=== PATIENT | male | born 1940 | race Caucasian/White ===

== ENCOUNTER 2020-11-30 13:27 | Outpatient (REF) | payer MEDICARE, OTHER, SELFPAY ==
--- NOTE | 2020-11-30 13:35 | CT_ITS ---
EXAMINATION: CT HEAD WITHOUT CONTRAST CLINICAL INFORMATION: Hydrocephalus. COMPARISON: No relevant prior imaging. TECHNIQUE: Contiguous axial imaging was performed from the skull base to vertex without intravenous administration of contrast. This CT examination was performed using dose optimization techniques as appropriate, variously including the following: *Automated exposure control *Adjustment of mA and/or kV according to patient size (this includes techniques or standardized protocols for targeted exams where dose is matched to indication/reason for exam; i.e. extremities or head) *Use of iterative reconstruction technique DLP: 697 mGy-cm FINDINGS: There is no acute intracranial hemorrhage or abnormal extra-axial collection. No intracranial mass effect or midline shift. Lateral and third ventricles are normal. No hydrocephalus. There is a small focus of gliosis and encephalomalacia involving left middle frontal gyrus near the vertex best illustrated on axial image 42 of 51 series 2 suggesting an old infarct or trauma. Scattered nonspecific foci of hypoattenuation are also visualized within the periventricular white matter. Brewster-white matter projection is otherwise preserved and there is no evidence of acute territorial infarct. The calvarium and skull base are intact. Mastoid air cells and middle ear cavities are well aerated. No active paranasal sinus disease. 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 Otherwise unremarkable examination. No hydrocephalus. No evidence acute territorial infarct or hemorrhage.
== END 2020-11-30 13:28 | disposition home or self-care (01) ==
LOC: HO.CT 13:27
PROVIDERS: Visit Provider Psychiatry & Neurology Neurology
DX: G91.9 Hydrocephalus, unspecified (principal); I63.9 Cerebral infarction, unspecified
CPT/HCPCS: 70450

== ENCOUNTER 2020-12-19 12:24 | Outpatient (REF) | payer MEDICARE, OTHER, SELFPAY ==
--- NOTE | 2020-12-19 | MR_ITS ---
EXAMINATION: MR CERVICAL SPINE WITHOUT CONTRAST CLINICAL INFORMATION: Shooting pain with head tilting positioning. Rule out myelopathy and cord compression. COMPARISON: None TECHNIQUE: MRI of the cervical spine was obtained using routine sequences without contrast. Limited study with motion artifacts. FINDINGS: VERTEBRAL BODIES AND PARASPINAL SOFT TISSUES: The marrow signal is within normal limits. There is an intraosseous hemangioma in the C6 vertebral body. No compression fractures identified. There is a leftward curvature of the cervical spine. Very mild anterolisthesis noted at the C3-C4 level. The paraspinal soft tissues are unremarkable. The imaged lung apices are grossly clear. CERVICOMEDULLARY JUNCTION AND VISUALIZED POSTERIOR FOSSA: The craniovertebral junction and imaged portions of the brain parenchyma appear normal. There is T2 hyperintense signal abnormality within the cord at the C3-C4 level which is suspected to be due to myelomalacia, however, mild underlying cord edema is difficult to exclude. The cervical vertebral artery flow voids are maintained. SPINAL LEVELS: C2-C3: No significant disc pathology. Severe left-sided facet degeneration. Patent central canal and foramina. C3-C4: Mild anterolisthesis and broad-based disc-osteophyte complex with severe right-sided facet arthropathy. Superimposed central disc protrusion. Findings result in severe central canal stenosis and moderate cord deformity with intramedullary signal change. Significant bilateral foraminal encroachment. C4-C5: Small central disc protrusion and mild annular bulge. No central canal stenosis. Severe right-sided facet arthropathy with mild foraminal encroachment. C5-C6: Broad-based posterior disc bulge with mild central canal stenosis. Moderate to severe foraminal narrowing, worse on the right side. C6-C7: Minimal annular bulge. No central canal stenosis. Moderate left sided facet arthropathy with mild left foraminal narrowing. C7-T1: Minimal annular bulge. No central canal stenosis or foraminal narrowing. MR/MR cervical spine wo con IMPRESSION: Severe central canal stenosis at the C3-C4 level with a mild anterolisthesis, central disc protrusion and underlying broad-based disc-osteophyte complex with significant right-sided facet arthropathy. Cord deformity and intramedullary signal change which is suspected to be due to chronic myelomalacia, however, mild superimposed edema is difficult to exclude. Severe left-sided facet arthropathy at the C2-C3 level. Small central disc protrusion and significant right-sided facet arthropathy at the C4-C5 level. Mild central canal stenosis and moderate to severe foraminal narrowing at the C5-C6 level. Moderate left-sided facet degeneration at the C6-C7 level.
== END 2020-12-19 12:25 | disposition home or self-care (01) ==
LOC: HO.MRI 12:24
PROVIDERS: Visit Provider Psychiatry & Neurology Neurology
DX: G95.9 Disease of spinal cord, unspecified (principal)
CPT/HCPCS: 72141

== ENCOUNTER 2022-05-17 13:46 | Inpatient (IN) | payer OTHER, MEDICARE, SELFPAY ==
--- NOTE | ~2022-05-17 | XR_ITS ---
EXAMINATION: XR CHEST AP upright portable, 4:15 PM CLINICAL INFORMATION: Chest pain COMPARISON: None TECHNIQUE: Frontal view of the chest was obtained. FINDINGS: No significant abnormality is noted involving the heart, lungs, mediastinum, bony thorax or soft tissues. XR/XR chest 1V IMPRESSION: Unremarkable examination.
[2022-05-17 13:50] VITALS: BP 144/78; PULSE 89; O2SAT 98
[2022-05-17 14:03] VITALS: BP 149/66; PULSE 78; RESP 16; TEMP 36; O2SAT 97; BMI 32.1
--- NOTE | 2022-05-17 14:05 | PC.NURSE ---
PT EKG DELAYED DUE TO BOTH MACHINES BEING IN USE
--- NOTE | 2022-05-17 14:10 | ECG_ITS ---
Test Reason : CP Blood Pressure : / mmHG Vent. Rate : 072 BPM Atrial Rate : 072 BPM P-R Int : 166 ms QRS Dur : 080 ms QT Int : 404 ms P-R-T Axes : 056 021 -18 degrees QTc Int : 442 ms Normal sinus rhythm Nonspecific ST and T wave abnormality Abnormal ECG No previous ECGs available Referred By: Generic ED Physician Electronically Signed By:VICENTA THOMAS MD
--- NOTE | 2022-05-17 15:31 | PC.NURSE ---
sts chest pain is now resolved at this time. no resp distress noted.
[2022-05-17 15:48] VITALS: BP 127/68; PULSE 70; RESP 16; TEMP 36.8; O2SAT 98
--- NOTE | 2022-05-17 16:11 | ED_ITS ---
HPI - Chest Pain General Chief Complaint: Chest Pain Stated Complaint: CP Time Seen by Provider: 05/17/22 16:00 Source: patient and EMS Mode of arrival: EMS Limitations: no limitations History of Present Illness HPI narrative: 81-year-old male presents to the emergency department via EMS for evaluation for chest pain. Patient stated that he was at his doctor's appointment, and while he was waiting he was eating crackers while in his car. Said the car was hot, and he ate a whole package of crackers without drinking. Said that he felt pain in his chest where his esophagus is. Pain felt like pressure, and he felt really dry. He said the car was really hot when he was eating. During transport to this facility, EMS gave 4 baby aspirins which he was able to swallow without difficulty. He does not report any prodromal events. Denies dizziness, lightheadedness, weakness, chest pain on inspiration, palpitations, abdominal pain, abdominal distention, changes in vision, fevers or chills. MD complaint: chest discomfort Onset (ago): hour(s) ( Within the hour of arrival) Timing of current episode: now resolved Prior episodes: No Onset: after eating Pain location: other ( esophageal) Pain radiation: none Severity: mild Quality: fullness and other ( pressure) Relieving factors: other ( drinking water) Exacerbating factors: nothing Treatment prior to arrival: aspirin ( 324 mg) Risk Factors Coronary artery disease risk factors: hyperlipidemia and hypertension Thoracic aortic dissection risk factors: none Related Data Allergies Allergy/AdvReac Type Severity Reaction Status Date / Time No Known Allergies Allergy Verified 05/17/22 14:06 Review of Systems Review of Systems: Constitutional: No Fever, No Chills ENT/Mouth: No Ear Pain, No Hoarseness, No sore throat Eyes: No Eye Pain, No Swelling, No Redness, No Foreign Body Cardiovascular: positive Chest Pain, positive esophageal pain, No SOB Respiratory: No Cough, No Dyspnea Gastrointestinal: No Nausea, No Vomiting, No Diarrhea, No abdominal Pain Genitourinary: No Dysuria, No Hematuria Musculoskeletal: positive joint pain, No Myalgias, No Joint Swelling Skin: No Skin lacerations, No rash Neuro: No Weakness, No Numbness, No Paresthesias, No Loss of Consciousness, No Dizziness, No Headache Psych: No Anxiety/Panic, No Depression Heme/Lymph: no easy bruising, no Lymphadenopathy Endocrine: No Polyuria, No Polydipsia Yes all other systems are reviewed and are negative [facility] Past Medical History Attestation statement: The following information was validated with the patient. Source: old records reviewed Social History Social History Advance Directives: No Advance Directives Information Provided: No Physical Exam Vital Signs: Vital Signs: Last Vital Signs Temp 98.2 F 05/17/22 19:59 Pulse 61 05/17/22 19:59 Resp 16 05/17/22 19:59 BP 141/64 H 05/17/22 19:59 Pulse Ox 95 05/17/22 19:59 O2 Del Method 05/17/22 19:59 BMI result Body Mass Index 31.3 Appearance: Alert. Oriented X3. No acute distress. appears nontoxic. Afebrile. Head: Normal external exam. Normocephalic. Atraumatic. Eyes: PERRLA. EOMI. Conjunctiva and sclera normal. Eyelids normal. ENT: TM's Normal. Pharynx normal. Uvula midline. Moist mucous membranes. Neck: Normal inspection. Neck supple. No adenopathy. No meningeal signs. No neck mass noted. CVS: Normal heart rate and rhythm. Heart sound normal. No murmurs noted. Pulses equal to all extremities. Respiratory: No respiratory distress. Painless inspiration. Breath sounds normal. No wheezes/rales/rhonchi noted. Chest nontender. No accessory muscle usage noted or decreased air movement noted. Abdomen: Soft and nontender. Bowel sounds normal in all 4 quadrants. No distention noted. No organomegaly noted. No visible injury noted. Back: No CVA tenderness. Full range of motion noted. Skin: Skin warm and dry. Normal skin color. Normal skin turgor. No chriss hes/lesions/lacerations noted. Extremities: No lower extremity edema. Extremities exhibit normal range of motion. Extremities nontender. Neuro: cranial nerves 2-12 intact, no focal neural deficits, strength 5/5 to all extremities, No motor deficit. No sensory deficit. Reflexes normal. Course Course Course Narrative: 81-year-old male presents with a report of chest pain via EMS. States that he was eating a large amount of crackers and did not have anything to drink with him. He was also sitting in a hot car while he was eating. He points to the sternal notch and his trachea/esophagus When he is asked where the pain. stated that the pain felt like a pressure but alleviated once he had some water to drink. He does not report prior MIs, did not report any prodromal symptoms with this event. He appears well, even unlabored respirations, vital signs are stable and within normal limits, speaking without difficulty and in complete sentences. Physical exam is unremarkable. No reproducible chest pain. No edema noted bilateral lower extremities. Will order ACS workup. 17:09 chest x-ray negative. CBC unremarkable. H&H 13.5/40.4. EKG normal sinus, no indication of ST elevation or depression, no indication of ischemia. 17:39 troponins elevated at 35.2, will repeat. Heart score is 6. 17:51 patient has significant concerns about being in a room with a patient who has been coughing nonstop. Patient wishes respected he was moved to a different room. Will repeat troponins at this time. Patient continues to be asymptomatic. States to have 0 chest pain. 18:59 trope elevated 91.5. high likelyhood of ACS, discussion with Cardiology. Plan of care is to start IV heparin. 19:32 discussion with hospitalist, plan of care is to admit for ACS Please note that patient is going through some difficult times at home. He is getting a divorce, has to move, and has significant anxiety regarding his living situation. At 20:00 patient's son is at bedside, and is reassuring the patient that patient's concerns will be taken care of by the son. I did have Case Management assess this patient. Consultations Consultation #1: catrina Time: 19:09 Consultation #2: Nancy Time: 19:33 MDM - Chest Pain Differential Diagnosis Differential diagnosis: Likely unstable angina pectoris, atypical chest pain, st elevation myocardial infarction, costochondritis and chest pain Medical Records Data Attestation: I reviewed the patient's medical records. Lab Data Attestation: I reviewed the patient's lab results. Result diagrams: 05/17/22 16:48 05/17/22 16:47 Labs: Lab Results 05/17/22 05/17/22 05/17/22 Range/Units 16:47 16:48 16:48 WBC 6.6 (4.8-10.8) X10*3/uL RBC 4.41 L (4.60-5.80) X10*6/uL Hgb 13.5 L (14.0-18.0) g/dl Hct 40.4 L (42.0-52.0) % MCV 91.6 (80.0-98.0) fL MCH 30.6 (27.0-33.0) pg MCHC 33.4 (31.0-36.0) g/dl RDW 12.5 (11.0-16.0) % Plt Count 165 (160-400) X10*3/uL MPV 10.2 (9.4-12.4) fL Immature Gran % (Auto) 0.8 H (0.0-0.4) % Neut % (Auto) 64.0 (45-73) % Lymph % (Auto) 24.8 (20-40) % Hemphill % (Auto) 8.0 (2-11) % Eos % (Auto) 2.1 (0-4) % Baso % (Auto) 0.3 (0-2) % Lymph # (Auto) 1.6 (1.2-4.9) X10*3/uL Hemphill # (Auto) 0.5 (0.1-1.2) X10*3/uL Eos # (Auto) 0.1 (0.0-0.4) X10*3/uL Baso # (Auto) 0.0 (0.0-0.2) X10*3/uL Abs Immat Gran (auto) 0.05 H (0.00-0.03) X10*3/uL Absolute Neuts (auto) 4.2 (2.0-8.3) x10*3/uL Absolute Nucleated RBC 0.000 (0.0-0.012) X10*3/uL Nucleated RBC % (auto) 0.0 (0.0-0.2) /100WBC PT (9.9-13.0) SEC INR (0.9-1.1) APTT (24.1-38.0) SEC Sodium 141 (135-145) mmol/L Potassium 4.0 (3.3-5.1) mmol/L Chloride 108 (96-108) mmol/L Carbon Dioxide 26 (22-29) mmol/L Anion Gap 11 L (12-20) BUN 14 (9-16) mg/dL Creatinine 0.90 (0.5-1.4) mg/dL Estim Creat Clear Calc 71.1 Estimated GFR > 60 POC Glucose (60-115) mg/dL Random Glucose 90 (60-115) mg/dL Calcium 8.7 (8.4-10.2) mg/dL Magnesium 2.4 (1.6-2.6) mg/dL Total Bilirubin 0.7 (0.0-1.0) mg/dL Direct Bilirubin 0.2 (0.0-0.5) mg/dL AST 16 (5-37) U/L ALT 9 (0-40) U/L Alkaline Phosphatase 77 (39-117) U/L Troponin I High Sens 35.2 H (<3.5-35.0) ng/L Total Protein 6.4 L (6.5-8.0) g/dL Albumin 4.1 (3.5-5.0) g/dL Lipase 34 (8-78) U/L COVID-19 (DARVIN) (Negative) COVID-19 Clin Com 05/17/22 05/17/22 05/17/22 Range/Units 16:48 16:53 18:01 WBC (4.8-10.8) X10*3/uL RBC (4.60-5.80) X10*6/uL Hgb (14.0-18.0) g/dl Hct (42.0-52.0) % MCV (80.0-98.0) fL MCH (27.0-33.0) pg MCHC (31.0-36.0) g/dl RDW (11.0-16.0) % Plt Count (160-400) X10*3/uL MPV (9.4-12.4) fL Immature Gran % (Auto) (0.0-0.4) % Neut % (Auto) (45-73) % Lymph % (Auto) (20-40) % Hemphill % (Auto) (2-11) % Eos % (Auto) (0-4) % Baso % (Auto) (0-2) % Lymph # (Auto) (1.2-4.9) X10*3/uL Hemphill # (Auto) (0.1-1.2) X10*3/uL Eos # (Auto) (0.0-0.4) X10*3/uL Baso # (Auto) (0.0-0.2) X10*3/uL Abs Immat Gran (auto) (0.00-0.03) X10*3/uL Absolute Neuts (auto) (2.0-8.3) x10*3/uL Absolute Nucleated RBC (0.0-0.012) X10*3/uL Nucleated RBC % (auto) (0.0-0.2) /100WBC PT 12.5 (9.9-13.0) SEC INR 1.1 (0.9-1.1) APTT 35.1 (24.1-38.0) SEC Sodium (135-145) mmol/L Potassium (3.3-5.1) mmol/L Chloride (96-108) mmol/L Carbon Dioxide (22-29) mmol/L Anion Gap (12-20) BUN (9-16) mg/dL Creatinine (0.5-1.4) mg/dL Estim Creat Clear Calc Estimated GFR POC Glucose 82 (60-115) mg/dL Random Glucose (60-115) mg/dL Calcium (8.4-10.2) mg/dL Magnesium (1.6-2.6) mg/dL Total Bilirubin (0.0-1.0) mg/dL Direct Bilirubin (0.0-0.5) mg/dL AST (5-37) U/L ALT (0-40) U/L Alkaline Phosphatase (39-117) U/L Troponin I High Sens 91.5 H D (<3.5-35.0) ng/L Total Protein (6.5-8.0) g/dL Albumin (3.5-5.0) g/dL Lipase (8-78) U/L COVID-19 (DARVIN) (Negative) COVID-19 Clin Com 05/17/22 Range/Units 19:50 WBC (4.8-10.8) X10*3/uL RBC (4.60-5.80) X10*6/uL Hgb (14.0-18.0) g/dl Hct (42.0-52.0) % MCV (80.0-98.0) fL MCH (27.0-33.0) pg MCHC (31.0-36.0) g/dl RDW (11.0-16.0) % Plt Count (160-400) X10*3/uL MPV (9.4-12.4) fL Immature Gran % (Auto) (0.0-0.4) % Neut % (Auto) (45-73) % Lymph % (Auto) (20-40) % Hemphill % (Auto) (2-11) % Eos % (Auto) (0-4) % Baso % (Auto) (0-2) % Lymph # (Auto) (1.2-4.9) X10*3/uL Hemphill # (Auto) (0.1-1.2) X10*3/uL Eos # (Auto) (0.0-0.4) X10*3/uL Baso # (Auto) (0.0-0.2) X10*3/uL Abs Immat Gran (auto) (0.00-0.03) X10*3/uL Absolute Neuts (auto) (2.0-8.3) x10*3/uL Absolute Nucleated RBC (0.0-0.012) X10*3/uL Nucleated RBC % (auto) (0.0-0.2) /100WBC PT (9.9-13.0) SEC INR (0.9-1.1) APTT (24.1-38.0) SEC Sodium (135-145) mmol/L Potassium (3.3-5.1) mmol/L Chloride (96-108) mmol/L Carbon Dioxide (22-29) mmol/L Anion Gap (12-20) BUN (9-16) mg/dL Creatinine (0.5-1.4) mg/dL Estim Creat Clear Calc Estimated GFR POC Glucose (60-115) mg/dL Random Glucose (60-115) mg/dL Calcium (8.4-10.2) mg/dL Magnesium (1.6-2.6) mg/dL Total Bilirubin (0.0-1.0) mg/dL Direct Bilirubin (0.0-0.5) mg/dL AST (5-37) U/L ALT (0-40) U/L Alkaline Phosphatase (39-117) U/L Troponin I High Sens (<3.5-35.0) ng/L Total Protein (6.5-8.0) g/dL Albumin (3.5-5.0) g/dL Lipase (8-78) U/L COVID-19 (DARVIN) Negative (Negative) COVID-19 Clin Com See Note Imaging Data Chest x-ray: Attestation: I personally reviewed and interpreted this imaging study as follows: Radiologist's impression: EXAMINATION: XR CHEST AP upright portable, 4:15 PM CLINICAL INFORMATION: Chest pain COMPARISON: None TECHNIQUE: Frontal view of the chest was obtained. FINDINGS: No significant abnormality is noted involving the heart, lungs, mediastinum, bony thorax or soft tissues. XR/XR chest 1V IMPRESSION: Unremarkable examination. ECG Data ECG #1: Attestation: I personally reviewed and interpreted this ECG as follows: ECG interpretation date: 05/17/22 ECG interpretation time: 13:56 Interpretation: Vent. rate 72 BPM RI interval 166 ms QRS duration 80 ms QT/QTc 404/442 ms P-R-T axes 56 21 -18 Normal sinus rhythm Nonspecific ST and T wave abnormality Abnormal ECG No previous ECGs available Scores Heart Score History: -1- moderately suspicious ECG: -1- non specific repolarization disturbance Age: -2- > or = 65 Risk factory: -2- 3 or more risk factors or treated atherosclerosis Troponin: -0- < or = normal limit Score: 6 Risk: 16.6% Critical Care Time Critical Care Time Critical Care Time: Yes Total Critical Care Time: 45 Attestation: I have personally provided critical care time exclusive of time spent on separately billable procedures. Time includes review of laboratory data, radiology results, discussion with consultants, and monitoring for potential decompensation. Interventions were performed as documented. Discharge Plan Discharge Clinical Impression: Acute non-ST elevation myocardial infarction (NSTEMI) Patient Disposition: Admitted As Inpatient
[2022-05-17 16:52] LABS: MANUAL DIFF FLAG NO
[2022-05-17 16:58] LABS: Glucose, Whole Blood 82 mg/dL (60-115)
[2022-05-17 17:01] LABS: Basophils Percent Auto 0.3 % (0-2); Eosinophils Absolute Auto 0.1 X10*3/uL (0.0-0.4); Eosinophils Percent Auto 2.1 % (0-4); Hematocrit 40.4 % (42.0-52.0); Hemoglobin 13.5 g/dl (14.0-18.0); Imm Gran Abs Auto 0.05 X10*3/uL (0.00-0.03); Imm Gran Pct Auto 0.8 % (0.0-0.4); Lymphocytes Absolute Auto 1.6 X10*3/uL (1.2-4.9); Lymphocytes Percent Auto 24.8 % (20-40); Mean Corpuscular HGB Conc 33.4 g/dl (31.0-36.0); Mean Corpuscular Hemoglobin 30.6 pg (27.0-33.0); Mean Corpuscular Volume 91.6 fL (80.0-98.0); Mean Platelet Volume 10.2 fL (9.4-12.4); Monocytes Absolute Auto 0.5 X10*3/uL (0.1-1.2); Neutrophils Absolute Auto 4.2 x10*3/uL (2.0-8.3); Platelet Count 165 X10*3/uL (160-400); Red Blood Count 4.41 X10*6/uL (4.60-5.80); Red Cell Distribution Width 12.5 % (11.0-16.0); White Blood Count 6.6 X10*3/uL (4.8-10.8)
[2022-05-17 17:05] LABS: Partial Thromboplastin Time 35.1 SEC (24.1-38.0)
[2022-05-17 17:26] LABS: Alanine Aminotransferase 9 U/L (0-40); Albumin Level 4.1 g/dL (3.5-5.0); Alkaline Phosphatase 77 U/L (39-117); Anion Gap 11 (12-20); Aspartate Amino Transferase 16 U/L (5-37); Bilirubin Direct 0.2 mg/dL (0.0-0.5); Bilirubin Total 0.7 mg/dL (0.0-1.0); Blood Urea Nitrogen 14 mg/dL (9-16); Calcium 8.7 mg/dL (8.4-10.2); Carbon Dioxide 26 mmol/L (22-29); Chloride 108 mmol/L (96-108); Creatinine Clr Calc Pharmacy 71.1; Estimated Glomerular Filt Rate > 60; Glucose Random 90 mg/dL (60-115); Lipase 34 U/L (8-78); Magnesium 2.4 mg/dL (1.6-2.6); Sodium 141 mmol/L (135-145); Total Protein 6.4 g/dL (6.5-8.0)
[2022-05-17 17:28] LABS: Troponin-I High Sensitivity 35.2 ng/L (<3.5-35.0)
[2022-05-17 18:00] VITALS: BP 143/61; PULSE 64; RESP 16; TEMP 36.6; O2SAT 98
--- NOTE | 2022-05-17 18:18 | PC.NURSE ---
PATIENT STATED HE WAS HUNGRY ,I GAVE PATIENT A HAM SANDWICH ,CHEESE STICKS ,PUDDING AND A TERRY BENJAMIN
[2022-05-17 18:32] LABS: Troponin-I High Sensitivity 91.5 ng/L (<3.5-35.0)
[2022-05-17 19:17] VITALS: BMI 31.3
[2022-05-17 19:17] LABS: INTERNATIONAL NORM RATIO 1.1 (0.9-1.1); Prothrombin Time 12.5 SEC (9.9-13.0)
--- NOTE | 2022-05-17 19:37 | PC.NURSE ---
pT HAD FULL LAB SET DRAWN AT 1648, OKAY PER CLUB ROOM ATTENDANT TO NOT PROTOCOL LAB SET.
[2022-05-17] MEDS: Heparin Sodium,Porcine 5,000 UNIT/ML VIAL 4000 UNIT IVPUSH (19:38)
[2022-05-17] MEDS: Heparin Sodium,Porcine/1/2NS 25,000 UNIT/250 ML IV.SOLN 10 UNIT IVCONT (19:39)
[2022-05-17 19:59] VITALS: BP 141/64; PULSE 61; RESP 16; TEMP 36.8; O2SAT 95
[2022-05-17 20:13] LABS: COVID-19 Test Negative (Negative)
--- NOTE | 2022-05-17 20:30 | PHA.MEDREC ---
Pharmacy Consult ? Medication Reconciliation Pharmacy has completed the medication reconciliation. Med list obtained from [place]
--- NOTE | 2022-05-17 20:57 | PC.NURSE ---
patient son at bedside ,patient request another sandwich and a nishant lenore .
[2022-05-17 21:31] VITALS: BP 135/79; PULSE 73; RESP 16; TEMP 36.8; O2SAT 97
--- NOTE | 2022-05-17 21:59 | P.HPHOSP_ITS ---
History of Present Illness Date of Service: 05/17/22 Chief Complaint: chest pain This is an 81-year-old male with past medical history of hyperlipidemia, hypothyroidism, BPH, as well as mild dementia presents the hospital with his son after experiencing chest pain. Patient reports that he was at the parking lot a t his doctor's office when he experienced substernal chest pain radiating to the neck, the pain was severe, heavy, constant, lasted for 2 hours, resolved on his arrival to the ED and receiving aspirin, reports no previous similar episode. No exacerbating factors. Patient reports no abdominal pain nausea or vomiting, no palpitations, no headache, no change in vision, no diarrhea constipation, no urinary symptoms and no lower extremity edema. On his arrival to the ED patient vitals were stable with no significant abnormality Labs are significant for WBC count of 7.0, hemoglobin of 13.7, troponin initially 35, increased to 91.5, otherwise unremarkable, EKG showed normal sinus rhythm, nonspecific ST T wave changes This case was discussed with Cardiology, patient started heparin drip, and patient will be admitted for further management Review of Systems Review of Systems: Yes all other systems are reviewed and are negative [facility] Medical History BPH (benign prostatic hyperplasia) GERD (gastroesophageal reflux disease) HLD (hyperlipidemia) Hypothyroidism Mild dementia Family History (Updated 05/18/22 @ 06:12 by Estelita Cruz MD) Other No family history of coronary artery disease Surgical History History of thoracic surgery Social History Advance Directives: No Advance Directives Information Provided: No service: Yes Current occupational status: retired Meds Allergies Allergy/AdvReac Type Severity Reaction Status Date / Time No Known Allergies Allergy Verified 05/17/22 14:06 Active Medications: Current Medications Acetaminophen (Acetaminophen 325 Mg Tablet) 650 mg PO Q6H PRN PRN Reason: Pain, Mild (Pain Scale 1-3) Aspirin (Aspirin Enteric Coated 81 Mg Tablet.Dr) 81 mg PO DAILY [facility] Atorvastatin Calcium (Atorvastatin Calcium 40 Mg Tablet) 40 mg PO BEDTIME [facility] Docusate Sodium (Docusate Sodium 100 Mg Capsule) 100 mg PO DAILY PRN PRN Reason: Constipation Donepezil HCl (Donepezil Hcl 5 Mg Tablet) 5 mg PO DAILY [facility] Heparin Sodium (Porcine) (Heparin Sodium,Porcine 5,000 Unit/Ml Vial) 3,600 unit 40 unit/kg (3600 unit) IVPUSH PROTOCOL BOLUS PRN; Protocol PRN Reason: 40 unit/kg - Heparin Protocol Heparin Sodium (Porcine) (Heparin Sodium,Porcine 5,000 Unit/Ml Vial) 7,300 unit 80 unit/kg (7300 unit) IVPUSH PROTOCOL BOLUS PRN; Protocol PRN Reason: 80 unit/kg - Heparin Protocol Heparin Sodium/Sodium Chloride () 25,000 unit in 250 mls @ 0 mls/hr IVCONT .Q0M [facility]; Protocol Last Admin: 05/17/22 19:39 Dose: 11.03 units/kg/hr, 10 mls/hr Levothyroxine Sodium (Levothyroxine Sodium 125 Mcg Tablet) 125 mcg PO DAILY@0600 [facility] Omeprazole (Omeprazole 20 Mg Capsule.Dr) 20 mg PO DAILY [facility] Ondansetron HCl (Ondansetron Hcl 4 Mg/2 Ml Vial) 4 mg IVPUSH Q8H PRN PRN Reason: Nausea and Vomiting Sertraline HCl (Sertraline Hcl 50 Mg Tablet) 50 mg PO DAILY [facility] Sodium Chloride (0.9 % Sodium Chloride Flush 3 Ml Syringe) 3 ml IVFLUSH QSHIFT [facility] Tamsulosin HCl (Tamsulosin Hcl 0.4 Mg Capsule) 0.4 mg PO DAILY [facility] Home Medications Medication Instructions Recorded Confirmed Last Taken Type aspirin 81 mg tablet,delayed 81 mg PO DAILY 05/17/22 05/17/22 05/16/22 History release atorvastatin 80 mg tablet 40 mg PO BEDTIME 05/17/22 05/17/22 05/16/22 History donepezil 5 mg tablet 5 mg PO DAILY 05/17/22 05/17/22 05/16/22 History levothyroxine 125 mcg tablet 125 mcg PO DAILY 05/17/22 05/17/22 05/16/22 History pantoprazole 20 mg tablet,delayed 20 mg PO DAILY 05/17/22 05/17/22 05/16/22 History release (Protonix) sertraline 50 mg tablet (Zoloft) 50 mg PO DAILY 05/17/22 05/17/22 05/16/22 History tamsulosin 0.4 mg capsule 0.4 mg PO DAILY 05/17/22 05/17/22 05/16/22 History Physical Exam Vital Signs and Narrative: Vital Signs: Last Vital Signs Temp 98.2 F 05/17/22 19:59 Pulse 61 05/17/22 19:59 Resp 16 05/17/22 19:59 BP 141/64 H 05/17/22 19:59 Pulse Ox 95 05/17/22 19:59 O2 Del Method 05/17/22 19:59 BMI result Body Mass Index 31.3 Const: General: cooperative and no acute distress Orientation/consciousness: patient oriented x3 Eyes: General: appearance normal, both eyes and all related structures Resp: Effort & Inspection: normal respiratory effort Auscultation: clear to auscultation bilaterally Cardio: Rate: regular rate Rhythm: regular rhythm GI: Palpation (GI): Soft to palpation Auscultation: normal bowel sounds Skin: General skin exam: no rashes or lesions noted Neuro: General: patient oriented x3 Cognition (Neuro): normal cognition Extrem: General: Yes normal to inspection and Yes no pedal edema Results Labs CBC and Chem 7: 05/17/22 23:55 05/17/22 16:47 Labs: Laboratory Results - last 24 hr 05/17/22 05/17/22 05/17/22 16:47 16:48 16:48 MCV 91.6 MCH 30.6 MCHC 33.4 RDW 12.5 Plt Count 165 MPV 10.2 Immature Gran % (Auto) 0.8 H Neut % (Auto) 64.0 Lymph % (Auto) 24.8 [place] % (Auto) 8.0 Eos % (Auto) 2.1 Baso % (Auto) 0.3 Lymph # (Auto) 1.6 [place] # (Auto) 0.5 Eos # (Auto) 0.1 Baso # (Auto) 0.0 Abs Immat Gran (auto) 0.05 H Absolute Neuts (auto) 4.2 Absolute Nucleated RBC 0.000 Nucleated RBC % (auto) 0.0 PT INR APTT Anion Gap 11 L Estim Creat Clear Calc 71.1 Estimated GFR > 60 POC Glucose Random Glucose 90 Calcium 8.7 Magnesium 2.4 Total Bilirubin 0.7 Direct Bilirubin 0.2 AST 16 ALT 9 Alkaline Phosphatase 77 Troponin I High Sens 35.2 H Total Protein 6.4 L Albumin 4.1 Lipase 34 COVID-19 (DARVIN) COVID-19 Clin Com 05/17/22 05/17/22 05/17/22 16:48 16:53 18:01 MCV MCH MCHC RDW Plt Count MPV Immature Gran % (Auto) Neut % (Auto) Lymph % (Auto) [place] % (Auto) Eos % (Auto) Baso % (Auto) Lymph # (Auto) [place] # (Auto) Eos # (Auto) Baso # (Auto) Abs Immat Gran (auto) Absolute Neuts (auto) Absolute Nucleated RBC Nucleated RBC % (auto) PT 12.5 INR 1.1 APTT 35.1 Anion Gap Estim Creat Clear Calc Estimated GFR POC Glucose 82 Random Glucose Calcium Magnesium Total Bilirubin Direct Bilirubin AST ALT Alkaline Phosphatase Troponin I High Sens 91.5 H D Total Protein Albumin Lipase COVID-19 (DARVIN) COVID-19 Clin Com 05/17/22 19:50 MCV MCH MCHC RDW Plt Count MPV Immature Gran % (Auto) Neut % (Auto) Lymph % (Auto) [place] % (Auto) Eos % (Auto) Baso % (Auto) Lymph # (Auto) [place] # (Auto) Eos # (Auto) Baso # (Auto) Abs Immat Gran (auto) Absolute Neuts (auto) Absolute Nucleated RBC Nucleated RBC % (auto) PT INR APTT Anion Gap Estim Creat Clear Calc Estimated GFR POC Glucose Random Glucose Calcium Magnesium Total Bilirubin Direct Bilirubin AST ALT Alkaline Phosphatase Troponin I High Sens Total Protein Albumin Lipase COVID-19 (DARVIN) Negative COVID-19 Clin Com See Note Imaging Radiologist's Impressions: Impressions Chest X-Ray 05/17/22 16:24 IMPRESSION: Unremarkable examination. Assessment and Plan (1) Acute non-ST elevation myocardial infarction (NSTEMI): Status: Acute Plan 81-year-old male with past medical history of hypothyroidism, hyperlipidemia, presents the hospital with complaints of chest pain found to have NSTEMI # NSTEMI - elevated high sensitivity troponin with delta - nonspecific ST T wave changes on EKG - patient on heparin drip - resume home aspirin as well as atorvastatin - will start on metoprolol small dose - echocardiogram - cardiology consulted # hypothyroidism - continue levothyroxine # BPH - continue tamsulosin # GERD - continue pantoprazole DVT prophylaxis: Heparin GGT Given the patient finding of NSTEMI, and need for further evaluation by Cardiology, patient will require a minimum 2 night hospital stay for further management Quality Stroke Does the patient have a stroke diagnosis?: No VTE Prior VTE?: No VTE Risk Level:: Medical - moderate - high VTE Device Contraindication: Treatment Not Indicated VTE Drug Contraindication: N/A - Med Ordered
--- NOTE | 2022-05-17 22:08 | MHC.CM.PN ---
IMM 05/17. HCP/son Kris Goins ([phone]). Lives alone. Son provides assistance. Lives 5 minutes away. Pt still drives. No services. Family help. Uses cane/walker. Vax x2 01/30/21, 02/20/21 with Pfizer and Moderna 12/15/21. [place]. Not vet connected. Has services at both [facility] and [facility]. [facility] [place] [facility] on [address] Ovi Bey in [facility] if his doctor. [facility] CM needs to call MD for PCP. D/C plan: Home with [facility]. Son will provide transport.
--- NOTE | 2022-05-17 22:29 | PC.NURSE ---
PATIENT SON IS STILL AT BEDSIDE ,PATIENT IN [facility] ,JOKING AROUND WITH STAFF .
--- NOTE | 2022-05-18 | ECG_ITS ---
Test Reason : ADMISSION RECHECK Blood Pressure : / mmHG Vent. Rate : 056 BPM Atrial Rate : 056 BPM P-R Int : 168 ms QRS Dur : 078 ms QT Int : 438 ms P-R-T Axes : 060 019 100 degrees QTc Int : 422 ms Sinus bradycardia Abnormal QRS-T angle, consider primary T wave abnormality Abnormal ECG When compared with ECG of 17-MAY-2022 13:56, T wave inversion no longer evident in Inferior leads Nonspecific T wave abnormality, worse in Lateral leads Referred By: Franky Bhatt Electronically Signed By:VICENTA THOMAS MD
[2022-05-18 00:07] LABS: Hematocrit 41.1 % (42.0-52.0); Hemoglobin 13.7 g/dl (14.0-18.0); Mean Corpuscular HGB Conc 33.3 g/dl (31.0-36.0); Mean Corpuscular Hemoglobin 30.5 pg (27.0-33.0); Mean Corpuscular Volume 91.5 fL (80.0-98.0); Mean Platelet Volume 10.3 fL (9.4-12.4); Platelet Count 175 X10*3/uL (160-400); Red Blood Count 4.49 X10*6/uL (4.60-5.80); Red Cell Distribution Width 12.3 % (11.0-16.0)
[2022-05-18 00:20] LABS: INTERNATIONAL NORM RATIO 1.1 (0.9-1.1); Prothrombin Time 12.1 SEC (9.9-13.0)
[2022-05-18 02:06] LABS: PTT Heparin Drip 34.5 SEC (53-77.9)
[2022-05-18] MEDS: Heparin Sodium,Porcine 5,000 UNIT/ML VIAL 7300 UNIT IVPUSH (02:29)
[2022-05-18] MEDS: 0.9 % Sodium Chloride Flush 3 ML SYRINGE IVFLUSH ×4 (02:35→19:31)
[2022-05-18 04:38] VITALS: BP 134/67; PULSE 70; RESP 20; O2SAT 96
[2022-05-18 06:59] VITALS: BP 139/72; PULSE 62; RESP 16; O2SAT 95
--- NOTE | 2022-05-18 07:00 | CA_ITS ---
Transthoracic Echocardiogram Patient (Last, First, Middle): Huang Goins, Gender: Male Date of : 1940 Age: 81 Procedure Date: 05/18/2022 Procedure Type: Transthoracic Echocardiogram Location: ER Height: 170.18 cm Weight: 48.08 kg BSA: 1.54 m2 Heart Rate: bpm BP: 117 / 56 mmHg Leather Belt Maker: IVAN Meeks MD: Estelita Cruz MD Wire Rope Sales Representative: Santiago Diaz MD Symptoms: NSTEMI Study Quality: Fair/Contrast ECG Rhythm: Sinus Conclusions: - 1. Normal LV systolic function with impaired relaxation filling pattern with regional wall motion abnormality in LAD territory 2. Trivial aortic regurgitation 3. Normal RV systolic pressure 4. No gross pericardial effusion Findings Procedure Information Contrast agent, definity, is being given per protocol without apparent complications. Left Ventricle Normal left ventricular size, thickness, and systolic function. The visually estimated ejection fraction is between 55-60%. Spectral Doppler is indicative of an impaired relaxation filling pattern. E/E prime ratio is between 8 and 15 consistent with indeterminate filling pressures. Wall Motion Rest Echo Findings The apex, apical anterior, mid anterior, apical lateral, and apical septum segments are hypokinetic. All other scored wall segments showed normal motion. Right Ventricle Normal right ventricular cavity size and systolic function. Atria The left atrium is normal in size. Interatrial shunt cannot be excluded. The right atrium is normal in size. Aortic Valve Normal aortic valve structure and function. There is no aortic valve stenosis. There is trace (trivial) aortic valve regurgitation. Mitral Valve There is mild anterior and posterior mitral leaflet thickening. There is mild mitral annular calcification. There is trace mitral valve regurgitation. There is no mitral valve stenosis. Pulmonic Valve The pulmonic valve is likely normal. There is trace to mild pulmonic valve regurgitation. Tricuspid Valve Normal tricuspid valve structure. There is trace tricuspid valve regurgitation. The right ventricular systolic pressure is normal. The right ventricular systolic pressure is 19 mmHg. Normal right atrial pressure. Great Vessels All visible segments of the aorta are normal in size. The pulmonary artery was not well visualized. Small plaque is seen in the sino tubular ridge. Venous The inferior vena cava is normal in size and collapses greater than 50% with inspiration. Pericardium/Pleural There is no evidence of pericardial effusion. Prior Study Comparison No prior study available for comparison. Measurements 2D Linear Measurements IVSd: 1.06 0.6-0.9/0.6-1.0 cm LVIDd: 3.95 3.9-5.3/4.2-5.9 cm LVIDd Index: 2.56 2.4-3.2/2.2-3.1 cm/m2 LVIDs: 3.18 2.0-3.6 cm LVPWd: 0.93 0.7-1.1 cm LA Diam: 3.30 2.7-3.8/3.0-4.0 cm LAIDs Index: 2.14 1.5-2.3 cm/m2 LV Mass: 153.98 67-162/88-224 g LV Mass Index: 99.99 43-95/49-115 g/m2 LVOT Diam: 2.00 3.0+(-)1.3 cm 2D Systolic Function EF 4C: 57.40 >55% EF 2C: 54.00 >55% EF BiP: 56.50 >55% Mitral Valve MV Pk E: 1.04 MV PK A: 0.94 MV Decel Time: 268.00 E/A: 1.10 E'Lateral: 7.62 E'Medial: 7.07 E/E' Med: 14.70 E/E' Lat: 13.60 PHT: 79.00 MVA PHT: 2.78 Decel [place]: 3.89 Aortic Valve AoV Pk Eliazar: 1.08 AoV Mn Eliazar: 0.73 AoV VTI: 0.21 AoV Pk Grad: 5.00 Aov Mn Grad: 3.00 ANNALEE Cont.VTI: 3.38 LVOT LVOT Pk Eliazar: 1.03 LVOT Mn Eliazar: 0.66 LVOT VTI: 0.23 LVOT Pk Grad: 4.00 LVOT Mn Grad: 2.00 LVOT Diam: 2.00 LVOT Area: 3.14 Diastolic Function MV Pk E: 1.04 MV Pk A: 0.94 E/A: 1.10 E'Medial: 7.07 E/E' Med: 14.70 E' Laterial: 7.62 E/E' Lat: 13.60 Right Ventricle TAPSE (mm): 15.90 TVS' Eliazar: 9.46 Tricuspid Valve TR Pk Eliazar: 2.02 TR Pk Grad: 16.00 RA Press: 3.00 RVSP: 19.00 Great Vessels Aorta Sinus of Valsalva: 3.92 2.0-3.5 cm Ao Asc: 3.10 2.1-3.4 cm Ao Arch: 2.70 Updated in Other Vendor System with Status of Final Santiago Diaz MD electronically signed on 05/19/2022 11:35:22 AM with status of Final
[2022-05-18 07:01] LABS: MANUAL DIFF FLAG NO
[2022-05-18 07:04] LABS: Glucose, Whole Blood 83 mg/dL (60-115)
[2022-05-18 07:07] LABS: INTERNATIONAL NORM RATIO 1.2 (0.9-1.1); Prothrombin Time 13.3 SEC (9.9-13.0)
[2022-05-18 07:09] LABS: Basophils Percent Auto 0.3 % (0-2); Eosinophils Absolute Auto 0.3 X10*3/uL (0.0-0.4); Eosinophils Percent Auto 4.4 % (0-4); Hematocrit 40.7 % (42.0-52.0); Hemoglobin 13.6 g/dl (14.0-18.0); Imm Gran Abs Auto 0.03 X10*3/uL (0.00-0.03); Imm Gran Pct Auto 0.4 % (0.0-0.4); Lymphocytes Absolute Auto 2.2 X10*3/uL (1.2-4.9); Lymphocytes Percent Auto 27.8 % (20-40); Mean Corpuscular HGB Conc 33.4 g/dl (31.0-36.0); Mean Corpuscular Hemoglobin 30.5 pg (27.0-33.0); Mean Corpuscular Volume 91.3 fL (80.0-98.0); Mean Platelet Volume 10.5 fL (9.4-12.4); Monocytes Absolute Auto 0.6 X10*3/uL (0.1-1.2); Monocytes Percent Auto 7.7 % (2-11); Neutrophils Absolute Auto 4.6 x10*3/uL (2.0-8.3); Neutrophils Percent Auto 59.4 % (45-73); Platelet Count 152 X10*3/uL (160-400); Red Blood Count 4.46 X10*6/uL (4.60-5.80); Red Cell Distribution Width 12.1 % (11.0-16.0); White Blood Count 7.8 X10*3/uL (4.8-10.8)
[2022-05-18] MEDS: Donepezil HCl 5 MG TABLET PO (07:15)
[2022-05-18] MEDS: Tamsulosin HCL 0.4 MG CAPSULE PO (07:15)
[2022-05-18] MEDS: Metoprolol Tartrate 12.5 MG HALFTAB PO ×2 (07:15→19:31)
[2022-05-18] MEDS: Sertraline HCL 50 MG TABLET PO (07:16)
[2022-05-18] MEDS: Aspirin Enteric Coated 81 MG TABLET.DR PO (07:16)
[2022-05-18] MEDS: Omeprazole 20 MG CAPSULE.DR PO (07:16)
[2022-05-18] MEDS: Levothyroxine Sodium 125 MCG TABLET PO (07:16)
[2022-05-18 07:35] LABS: Anion Gap 9 (12-20); Blood Urea Nitrogen 12 mg/dL (9-16); Calcium 8.7 mg/dL (8.4-10.2); Carbon Dioxide 28 mmol/L (22-29); Chloride 108 mmol/L (96-108); Creatinine Clr Calc Pharmacy 76.2; Estimated Glomerular Filt Rate > 60; Glucose Random 96 mg/dL (60-115); Potassium 3.7 mmol/L (3.3-5.1); Sodium 141 mmol/L (135-145)
--- NOTE | 2022-05-18 09:39 | P.PNIM_ITS ---
Subjective Subjective Date of Service: 05/18/22 Interval History: f/u on NSTEMI Interval history:no chest pain Review of Systems no cp or sob Physical Exam Vital Signs: Vital Signs: Last Vital Signs Temp 98.3 F 05/17/22 21:31 Pulse 62 05/18/22 06:59 Resp 16 05/18/22 06:59 BP 139/72 05/18/22 06:59 Pulse Ox 95 05/18/22 06:59 O2 Del Method 05/18/22 06:59 BMI result Body Mass Index 31.3 Const: Other: General: AO X 3, no acute distress Resp: CTA bilateral CVS: S1,S2,RRR GI: +BS, NT, no distention Skin: No rash Neuro: motor grossly intact Psych: appropriate affect Objective Data Active Medications Acetaminophen (Acetaminophen 325 Mg Tablet) 650 mg PO Q6H PRN PRN Reason: Pain, Mild (Pain Scale 1-3) Aspirin (Aspirin Enteric Coated 81 Mg Tablet.) 81 mg PO DAILY [facility] Last Admin: 05/18/22 07:16 Dose: 81 mg Documented By: TEJAS Atorvastatin Calcium (Atorvastatin Calcium 40 Mg Tablet) 40 mg PO BEDTIME [facility] Docusate Sodium (Docusate Sodium 100 Mg Capsule) 100 mg PO DAILY PRN PRN Reason: Constipation Donepezil HCl (Donepezil Hcl 5 Mg Tablet) 5 mg PO DAILY [facility] Last Admin: 05/18/22 07:15 Dose: 5 mg Documented By: TEJAS Heparin Sodium (Porcine) (Heparin Sodium,Porcine 5,000 Unit/Ml Vial) 3,600 unit 40 unit/kg (3600 unit) IVPUSH PROTOCOL BOLUS PRN; Protocol PRN Reason: 40 unit/kg - Heparin Protocol Heparin Sodium (Porcine) (Heparin Sodium,Porcine 5,000 Unit/Ml Vial) 7,300 unit 80 unit/kg (7300 unit) IVPUSH PROTOCOL BOLUS PRN; Protocol PRN Reason: 80 unit/kg - Heparin Protocol Last Admin: 05/18/22 02:29 Dose: 7,300 unit Documented By: KIM Heparin Sodium/Sodium Chloride () 25,000 unit in 250 mls @ 0 mls/hr IVCONT .Q0M [facility]; Protocol Last Titration: 05/18/22 02:31 Dose: 15.03 units/kg/hr, 13.63 mls/hr Documented By: KIM Co-signed By: PEDRO Levothyroxine Sodium (Levothyroxine Sodium 125 Mcg Tablet) 125 mcg PO DAILY@0600 [facility] Last Admin: 05/18/22 07:16 Dose: 125 mcg Documented By: TEJAS Metoprolol Tartrate (Metoprolol Tartrate 12.5 Mg Halftab) 12.5 mg PO BID [facility]; Protocol Last Admin: 05/18/22 07:15 Dose: 12.5 mg Documented By: TEJAS Omeprazole (Omeprazole 20 Mg Capsule.) 20 mg PO DAILY [facility] Last Admin: 05/18/22 07:16 Dose: 20 mg Documented By: TEJAS Ondansetron HCl (Ondansetron Hcl 4 Mg/2 Ml Vial) 4 mg IVPUSH Q8H PRN PRN Reason: Nausea and Vomiting Sertraline HCl (Sertraline Hcl 50 Mg Tablet) 50 mg PO DAILY [facility] Last Admin: 05/18/22 07:16 Dose: 50 mg Documented By: TEJAS Sodium Chloride (0.9 % Sodium Chloride Flush 3 Ml Syringe) 3 ml IVFLUSH QSHIFT [facility] Last Admin: 05/18/22 02:35 Dose: 3 ml Documented By: KIM Tamsulosin HCl (Tamsulosin Hcl 0.4 Mg Capsule) 0.4 mg PO DAILY [facility] Last Admin: 05/18/22 07:15 Dose: 0.4 mg Documented By: TEJAS Labs CBC & Chem 7: 05/18/22 06:18 05/18/22 06:18 Labs: Laboratory Results - last 24 hr 05/17/22 05/17/22 05/17/22 16:47 16:48 16:48 MCV 91.6 MCH 30.6 MCHC 33.4 RDW 12.5 Plt Count 165 MPV 10.2 Immature Gran % (Auto) 0.8 H Neut % (Auto) 64.0 Lymph % (Auto) 24.8 [place] % (Auto) 8.0 Eos % (Auto) 2.1 Baso % (Auto) 0.3 Lymph # (Auto) 1.6 [place] # (Auto) 0.5 Eos # (Auto) 0.1 Baso # (Auto) 0.0 Abs Immat Gran (auto) 0.05 H Absolute Neuts (auto) 4.2 Absolute Nucleated RBC 0.000 Nucleated RBC % (auto) 0.0 PT INR APTT aPTT Heparin Protocol Anion Gap 11 L Estim Creat Clear Calc 71.1 Estimated GFR > 60 POC Glucose Random Glucose 90 Calcium 8.7 Magnesium 2.4 Total Bilirubin 0.7 Direct Bilirubin 0.2 AST 16 ALT 9 Alkaline Phosphatase 77 Troponin I High Sens 35.2 H Total Protein 6.4 L Albumin 4.1 Lipase 34 COVID-19 (DARVIN) COVID-19 [place] Com 05/17/22 05/17/22 05/17/22 16:48 16:53 18:01 MCV MCH MCHC RDW Plt Count MPV Immature Gran % (Auto) Neut % (Auto) Lymph % (Auto) [place] % (Auto) Eos % (Auto) Baso % (Auto) Lymph # (Auto) [place] # (Auto) Eos # (Auto) Baso # (Auto) Abs Immat Gran (auto) Absolute Neuts (auto) Absolute Nucleated RBC Nucleated RBC % (auto) PT 12.5 INR 1.1 APTT 35.1 aPTT Heparin Protocol Anion Gap Estim Creat Clear Calc Estimated GFR POC Glucose 82 Random Glucose Calcium Magnesium Total Bilirubin Direct Bilirubin AST ALT Alkaline Phosphatase Troponin I High Sens 91.5 H D Total Protein Albumin Lipase COVID-19 (DARVIN) COVID-WP Fail-Safe 05/17/22 05/17/22 05/17/22 19:50 23:55 23:55 MCV 91.5 MCH 30.5 MCHC 33.3 RDW 12.3 Plt Count 175 MPV 10.3 Immature Gran % (Auto) Neut % (Auto) Lymph % (Auto) [place] % (Auto) Eos % (Auto) Baso % (Auto) Lymph # (Auto) [place] # (Auto) Eos # (Auto) Baso # (Auto) Abs Immat Gran (auto) Absolute Neuts (auto) Absolute Nucleated RBC 0.000 Nucleated RBC % (auto) 0.0 PT 12.1 INR 1.1 APTT aPTT Heparin Protocol 35.0 L Anion Gap Estim Creat Clear Calc Estimated GFR POC Glucose Random Glucose Calcium Magnesium Total Bilirubin Direct Bilirubin AST ALT Alkaline Phosphatase Troponin I High Sens Total Protein Albumin Lipase COVID-19 (DARVIN) Negative COVID-19 Clin Com See Note 05/18/22 05/18/22 05/18/22 01:48 06:18 06:18 MCV 91.3 MCH 30.5 MCHC 33.4 RDW 12.1 Plt Count 152 L MPV 10.5 Immature Gran % (Auto) 0.4 Neut % (Auto) 59.4 Lymph % (Auto) 27.8 [place] % (Auto) 7.7 Eos % (Auto) 4.4 H Baso % (Auto) 0.3 Lymph # (Auto) 2.2 [place] # (Auto) 0.6 Eos # (Auto) 0.3 Baso # (Auto) 0.0 Abs Immat Gran (auto) 0.03 Absolute Neuts (auto) 4.6 Absolute Nucleated RBC 0.000 Nucleated RBC % (auto) 0.0 PT 13.3 H INR 1.2 H APTT aPTT Heparin Protocol 34.5 L Anion Gap Estim Creat Clear Calc Estimated GFR POC Glucose Random Glucose Calcium Magnesium Total Bilirubin Direct Bilirubin AST ALT Alkaline Phosphatase Troponin I High Sens Total Protein Albumin Lipase COVID-19 (DARVIN) COVID-19 Clin Com 05/18/22 05/18/22 06:18 06:57 MCV MCH MCHC RDW Plt Count MPV Immature Gran % (Auto) Neut % (Auto) Lymph % (Auto) [place] % (Auto) Eos % (Auto) Baso % (Auto) Lymph # (Auto) [place] # (Auto) Eos # (Auto) Baso # (Auto) Abs Immat Gran (auto) Absolute Neuts (auto) Absolute Nucleated RBC Nucleated RBC % (auto) PT INR APTT aPTT Heparin Protocol Anion Gap 9 L Estim Creat Clear Calc 76.2 Estimated GFR > 60 POC Glucose 83 Random Glucose 96 Calcium 8.7 Magnesium Total Bilirubin Direct Bilirubin AST ALT Alkaline Phosphatase Troponin I High Sens Total Protein Albumin Lipase COVID-19 (DARVIN) COVID-19 Clin Com Assessment and Plan (1) Acute non-ST elevation myocardial infarction (NSTEMI): Status: Acute Plan 81-year-old male with past medical history of hypothyroidism, hyperlipidemia, presents the hospital with complaints of chest pain found to have NSTEMI # Elevated troponin /NSTEMI trop 35 to 95 -being treated with ASA, BB, Statin and anticoagulation, cardiology to advise further. Repeat trop much higher.. Cardiology plan to send to [facility] tomorrow for cath # hypothyroidism - continue levothyroxine # BPH - continue tamsulosin # GERD - continue pantoprazole DVT prophylaxis:? Heparin GGT Need for inaptient : being treated for acute WA on IV heparin PTT has been very throught the day: nursing belives there may have been equipment malfunction. The pump is decomissioned and will continue to monitor closely, there has been no sing of bleeding at this time. Quality Stroke Does the patient have a stroke diagnosis?: No VTE Prior VTE?: No VTE Risk Level:: Medical - moderate - high VTE Device Contraindication: Treatment Not Indicated VTE Drug Contraindication: N/A - Med Ordered
[2022-05-18 10:30] LABS: PTT Heparin Drip > 150.0 SEC (53-77.9)
--- NOTE | 2022-05-18 10:30 | PC.NURSE ---
Patient ptt came back greater than 150 twice, heparin drip stopped will redraw lab in 1 hour. Provider notified
[2022-05-18 10:43] VITALS: BP 106/56; PULSE 56; RESP 10; O2SAT 97
[2022-05-18 11:00] LABS: Troponin-I High Sensitivity 528.6 ng/L (<3.5-35.0)
--- NOTE | 2022-05-18 11:55 | P.CONCA_ITS ---
History of Present Illness History of Present Illness Date of Service: 05/18/22 Requesting physician: Estelita Cruz Consult reason: other (Acute coronary syndrome) Chief complaint: NSTEMI Narrative: I was consulted to see Huang in cardiology consultation today for acute coronary syndrome. He is 81-year-old male who says he is generally in good health has no prior cardiac issues came to the hospital with sudden-onset chest discomfort. 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 Yesterday was sitting in the car eating crackers. He has not had appetite for some time. He is undergoing a psychological stress related to his doing worse. He was seeing a provided regarding this and then subsequently he started having discomfort in his upper sternal/neck area which she describes as tightness restarted radiating down. He then walked into the office but his symptoms then gradually got worse and 911 was called. EN route he was given aspirin. By the time he came to the emergency room his discomfort at resolved. No associated shortness of breath, nausea, vomiting, diaphoresis. He has never symptoms like this in the past. His 1st troponin was slightly elevated and 2nd troponin was in the 90s. I was consulted. His EKG showed nonspecific changes in the lateral leads subsequent EKG is normalized. He is currently not having any chest pain syndrome. His heart rate is in the upper 50s to 60s. Blood pressure is stable. Currently on low-dose metoprolol, aspirin, statins and IV heparin. Cardiology consult was sought for further management plan. Histhird troponins in the 590 range Review of Systems Constitutional: Constitutional: Reports poor appetite Eyes: Eyes: Reports no additional eye complaints Cardiovascular: Cardiovascular: Reports chest pain at rest, Denies syncope, Denies leg edema, Denies lightheadedness, Denies Loss of Consciousness, Denies palpitations and Denies dyspnea Respiratory: Respiratory: Reports no additional respiratory complaints and Denies dyspnea Gastrointestinal: Gastrointestinal: Reports no additional gastrointestinal complaints Genitourinary: Genitourinary: Reports no additional male genitourinary complaints Musculoskeletal: Musculoskeletal: Reports no additional musculoskeletal complaints Neurologic: Reports system reviewed and no additional complaints, except as documented and Denies syncope Psychiatric: Psychiatric: Reports no additional psychiatric complaints Endocrine: Endocrine: Reports no additional endocrine complaints and Denies palpitations Hematologic/Lymphatic: Hematologic/Lymphatic: Reports no additional hematologic/lymphatic complaints Allergic/Immunologic: Allergic/Immunologic: Reports no additional allergic/immunologic complaints [facility] Past Medical History Medical History BPH (benign prostatic hyperplasia) GERD (gastroesophageal reflux disease) HLD (hyperlipidemia) Hypothyroidism Mild dementia Family History Family History Other No family history of coronary artery disease Surgical History Surgical History History of thoracic surgery Social History Social History Advance Directives: No Advance Directives Information Provided: No service: Yes Current occupational status: retired Meds Allergies Allergy/AdvReac Type Severity Reaction Status Date / Time No Known Allergies Allergy Verified 05/17/22 14:06 Active Medications: Current Medications Acetaminophen (Acetaminophen 325 Mg Tablet) 650 mg PO Q6H PRN PRN Reason: Pain, Mild (Pain Scale 1-3) Aspirin (Aspirin Enteric Coated 81 Mg Tablet.Dr) 81 mg PO DAILY [facility] Last Admin: 05/18/22 07:16 Dose: 81 mg Atorvastatin Calcium (Atorvastatin Calcium 40 Mg Tablet) 40 mg PO BEDTIME ARNULFO Docusate Sodium (Docusate Sodium 100 Mg Capsule) 100 mg PO DAILY PRN PRN Reason: Constipation Donepezil HCl (Donepezil Hcl 5 Mg Tablet) 5 mg PO DAILY [facility] Last Admin: 05/18/22 07:15 Dose: 5 mg Heparin Sodium (Porcine) (Heparin Sodium,Porcine 5,000 Unit/Ml Vial) 3,600 unit 40 unit/kg (3600 unit) IVPUSH PROTOCOL BOLUS PRN; Protocol PRN Reason: 40 unit/kg - Heparin Protocol Heparin Sodium (Porcine) (Heparin Sodium,Porcine 5,000 Unit/Ml Vial) 7,300 unit 80 unit/kg (7300 unit) IVPUSH PROTOCOL BOLUS PRN; Protocol PRN Reason: 80 unit/kg - Heparin Protocol Last Admin: 05/18/22 02:29 Dose: 7,300 unit Heparin Sodium/Sodium Chloride () 25,000 unit in 250 mls @ 0 mls/hr IVCONT .Q0M ARNULFO; Protocol Last Titration: 05/18/22 02:31 Dose: 15.03 units/kg/hr, 13.63 mls/hr Levothyroxine Sodium (Levothyroxine Sodium 125 Mcg Tablet) 125 mcg PO DAILY@0600 [facility] Last Admin: 05/18/22 07:16 Dose: 125 mcg Metoprolol Tartrate (Metoprolol Tartrate 12.5 Mg Halftab) 12.5 mg PO BID [facility]; Protocol Last Admin: 05/18/22 07:15 Dose: 12.5 mg Omeprazole (Omeprazole 20 Mg Capsule.) 20 mg PO DAILY [facility] Last Admin: 05/18/22 07:16 Dose: 20 mg Ondansetron HCl (Ondansetron Hcl 4 Mg/2 Ml Vial) 4 mg IVPUSH Q8H PRN PRN Reason: Nausea and Vomiting Sertraline HCl (Sertraline Hcl 50 Mg Tablet) 50 mg PO DAILY [facility] Last Admin: 05/18/22 07:16 Dose: 50 mg Sodium Chloride (0.9 % Sodium Chloride Flush 3 Ml Syringe) 3 ml IVFLUSH QSHIFT [facility] Last Admin: 05/18/22 02:35 Dose: 3 ml Tamsulosin HCl (Tamsulosin Hcl 0.4 Mg Capsule) 0.4 mg PO DAILY [facility] Last Admin: 05/18/22 07:15 Dose: 0.4 mg Home Medications Medication Instructions Recorded Confirmed Last Taken Type aspirin 81 mg tablet,delayed 81 mg PO DAILY 05/17/22 05/17/22 05/16/22 History release atorvastatin 80 mg tablet 40 mg PO BEDTIME 05/17/22 05/17/22 05/16/22 History donepezil 5 mg tablet 5 mg PO DAILY 05/17/22 05/17/22 05/16/22 History levothyroxine 125 mcg tablet 125 mcg PO DAILY 05/17/22 05/17/22 05/16/22 History pantoprazole 20 mg tablet,delayed 20 mg PO DAILY 05/17/22 05/17/22 05/16/22 History release (Protonix) sertraline 50 mg tablet (Zoloft) 50 mg PO DAILY 05/17/22 05/17/22 05/16/22 History tamsulosin 0.4 mg capsule 0.4 mg PO DAILY 05/17/22 05/17/22 05/16/22 History Physical Exam Vital Signs: Vital Signs: Last Vital Signs Temp 98.3 F 05/17/22 21:31 Pulse 56 05/18/22 10:43 Resp 10 L 05/18/22 10:43 BP 106/56 L 05/18/22 10:43 Pulse Ox 97 05/18/22 10:43 O2 Del Method 05/18/22 10:43 BMI result Body Mass Index 31.3 Const: General: cooperative, comfortable, no acute distress, alert and awake Nutritional Appearance: overweight Orientation/consciousness: patient oriented x3 Limitations: no limitations HEENT: Head: Yes normocephalic and Yes atraumatic Neck: Neck: Yes trachea midline, Yes supple and Yes no JVD Chest: Chest palpation & inspection: normal inspection of the chest Resp: Effort & Inspection: normal respiratory effort Auscultation: clear to auscultation bilaterally Cardio: Jugular venous distension: no JVD Palpation: normal PMI Rate: regular rate Rhythm: regular rhythm Heart sounds: S1 normal heart sound present, S2 normal heart sound present, no click, no gallops, no murmurs and no rubs GI: Auscultation: normal bowel sounds Skin: General skin exam: no rashes or lesions noted Neuro: General: patient oriented x3 and no focal motor deficits Extrem: General: Yes no clubbing, cyanosis or edema Objective Labs and Meds Result diagrams: 05/18/22 06:18 05/18/22 06:18 Lab results: Laboratory Results - last 24 hr 05/17/22 05/17/22 05/17/22 16:47 16:48 16:48 WBC 6.6 RBC 4.41 L Hgb 13.5 L Hct 40.4 L MCV 91.6 MCH 30.6 MCHC 33.4 RDW 12.5 Plt Count 165 MPV 10.2 Immature Gran % (Auto) 0.8 H Neut % (Auto) 64.0 Lymph % (Auto) 24.8 [place] % (Auto) 8.0 Eos % (Auto) 2.1 Baso % (Auto) 0.3 Lymph # (Auto) 1.6 [place] # (Auto) 0.5 Eos # (Auto) 0.1 Baso # (Auto) 0.0 Abs Immat Gran (auto) 0.05 H Absolute Neuts (auto) 4.2 Absolute Nucleated RBC 0.000 Nucleated RBC % (auto) 0.0 PT INR APTT aPTT Heparin Protocol Sodium 141 Potassium 4.0 Chloride 108 Carbon Dioxide 26 Anion Gap 11 L BUN 14 Creatinine 0.90 Estim Creat Clear Calc 71.1 Estimated GFR > 60 POC Glucose Random Glucose 90 Calcium 8.7 Magnesium 2.4 Total Bilirubin 0.7 Direct Bilirubin 0.2 AST 16 ALT 9 Alkaline Phosphatase 77 Troponin I High Sens 35.2 H Total Protein 6.4 L Albumin 4.1 Lipase 34 COVID-19 (DARVIN) COVID-19 Clin Com 05/17/22 05/17/22 05/17/22 16:48 16:53 18:01 WBC RBC Hgb Hct MCV MCH MCHC RDW Plt Count MPV Immature Gran % (Auto) Neut % (Auto) Lymph % (Auto) [place] % (Auto) Eos % (Auto) Baso % (Auto) Lymph # (Auto) [place] # (Auto) Eos # (Auto) Baso # (Auto) Abs Immat Gran (auto) Absolute Neuts (auto) Absolute Nucleated RBC Nucleated RBC % (auto) PT 12.5 INR 1.1 APTT 35.1 aPTT Heparin Protocol Sodium Potassium Chloride Carbon Dioxide Anion Gap BUN Creatinine Estim Creat Clear Calc Estimated GFR POC Glucose 82 Random Glucose Calcium Magnesium Total Bilirubin Direct Bilirubin AST ALT Alkaline Phosphatase Troponin I High Sens 91.5 H D Total Protein Albumin Lipase COVID-19 (DARVIN) COVID-19 Clin Com 05/17/22 05/17/22 05/17/22 19:50 23:55 23:55 WBC 7.0 RBC 4.49 L Hgb 13.7 L Hct 41.1 L MCV 91.5 MCH 30.5 MCHC 33.3 RDW 12.3 Plt Count 175 MPV 10.3 Immature Gran % (Auto) Neut % (Auto) Lymph % (Auto) [place] % (Auto) Eos % (Auto) Baso % (Auto) Lymph # (Auto) [place] # (Auto) Eos # (Auto) Baso # (Auto) Abs Immat Gran (auto) Absolute Neuts (auto) Absolute Nucleated RBC 0.000 Nucleated RBC % (auto) 0.0 PT 12.1 INR 1.1 APTT aPTT Heparin Protocol 35.0 L Sodium Potassium Chloride Carbon Dioxide Anion Gap BUN Creatinine Estim Creat Clear Calc Estimated GFR POC Glucose Random Glucose Calcium Magnesium Total Bilirubin Direct Bilirubin AST ALT Alkaline Phosphatase Troponin I High Sens Total Protein Albumin Lipase COVID-19 (DARVIN) Negative COVID-19 Clin Com See Note 05/18/22 05/18/22 05/18/22 01:48 06:18 06:18 WBC 7.8 RBC 4.46 L Hgb 13.6 L Hct 40.7 L MCV 91.3 MCH 30.5 MCHC 33.4 RDW 12.1 Plt Count 152 L MPV 10.5 Immature Gran % (Auto) 0.4 Neut % (Auto) 59.4 Lymph % (Auto) 27.8 [place] % (Auto) 7.7 Eos % (Auto) 4.4 H Baso % (Auto) 0.3 Lymph # (Auto) 2.2 [place] # (Auto) 0.6 Eos # (Auto) 0.3 Baso # (Auto) 0.0 Abs Immat Gran (auto) 0.03 Absolute Neuts (auto) 4.6 Absolute Nucleated RBC 0.000 Nucleated RBC % (auto) 0.0 PT 13.3 H INR 1.2 H APTT aPTT Heparin Protocol 34.5 L Sodium Potassium Chloride Carbon Dioxide Anion Gap BUN Creatinine Estim Creat Clear Calc Estimated GFR POC Glucose Random Glucose Calcium Magnesium Total Bilirubin Direct Bilirubin AST ALT Alkaline Phosphatase Troponin I High Sens Total Protein Albumin Lipase COVID-19 (DARVIN) COVID-19 Clin Com 05/18/22 05/18/22 05/18/22 06:18 06:57 09:52 WBC RBC Hgb Hct MCV MCH MCHC RDW Plt Count MPV Immature Gran % (Auto) Neut % (Auto) Lymph % (Auto) [place] % (Auto) Eos % (Auto) Baso % (Auto) Lymph # (Auto) [place] # (Auto) Eos # (Auto) Baso # (Auto) Abs Immat Gran (auto) Absolute Neuts (auto) Absolute Nucleated RBC Nucleated RBC % (auto) PT INR APTT aPTT Heparin Protocol > 150.0 H* D Sodium 141 Potassium 3.7 Chloride 108 Carbon Dioxide 28 Anion Gap 9 L BUN 12 Creatinine 0.83 Estim Creat Clear Calc 76.2 Estimated GFR > 60 POC Glucose 83 Random Glucose 96 Calcium 8.7 Magnesium Total Bilirubin Direct Bilirubin AST ALT Alkaline Phosphatase Troponin I High Sens Total Protein Albumin Lipase COVID-19 (DARVIN) COVID-19 Clin Com 05/18/22 10:20 WBC RBC Hgb Hct MCV MCH MCHC RDW Plt Count MPV Immature Gran % (Auto) Neut % (Auto) Lymph % (Auto) [place] % (Auto) Eos % (Auto) Baso % (Auto) Lymph # (Auto) [place] # (Auto) Eos # (Auto) Baso # (Auto) Abs Immat Gran (auto) Absolute Neuts (auto) Absolute Nucleated RBC Nucleated RBC % (auto) PT INR APTT aPTT Heparin Protocol Sodium Potassium Chloride Carbon Dioxide Anion Gap BUN Creatinine Estim Creat Clear Calc Estimated GFR POC Glucose Random Glucose Calcium Magnesium Total Bilirubin Direct Bilirubin AST ALT Alkaline Phosphatase Troponin I High Sens 528.6 H* D Total Protein Albumin Lipase COVID-19 (DARVIN) COVID-19 Clin Com Imaging Radiologist's impression: Impressions Chest X-Ray 05/17/22 16:24 IMPRESSION: Unremarkable examination. Assessment and Plan (1) Acute non-ST elevation myocardial infarction (NSTEMI): Status: Acute Patient with symptoms, EKGs as well as troponin changes consistent with acute coronary syndrome with high risk features with evidence of myocardial necrosis. Patient currently on appropriate treatment symptom-free. Will continue to monitor at hospital were discussed with him that he require cardiac catheterization to further delineate coronary anatomy and further treatment plan. He is agreeable to this management plan. Will transfer him to [facility] tomorrow. If he develops any acute compromise please consult us and may require sooner transfer. Continue aspirin, IV heparin, high-intensity statin therapy. He is currently on low-dose metoprolol with soft blood pressure and normal heart rate. Use nitrates as needed. Will continue to follow with him Procedures Date of Service Date of Service: 05/18/22
[2022-05-18 12:26] LABS: PTT Heparin Drip > 150.0 SEC (53-77.9)
[2022-05-18 14:28] LABS: PTT Heparin Drip > 150.0 SEC (53-77.9)
--- NOTE | 2022-05-18 15:00 | PC.NURSE ---
pt was on heparin drip and it was stopped at 0830 for ptt greater than 150. continued to draw ptt every hour per protocal. provider is aware. Pt is alert and oriented. Pt needs are being met
[2022-05-18 15:54] VITALS: BP 124/62; PULSE 66; RESP 16; TEMP 36.2; O2SAT 97
[2022-05-18 16:07] LABS: PTT Heparin Drip > 150.0 SEC (53-77.9)
[2022-05-18 17:51] LABS: PTT Heparin Drip > 200.0 SEC (53-77.9)
[2022-05-18 19:01] VITALS: BP 111/57; PULSE 67; RESP 18; TEMP 36.9; O2SAT 99
[2022-05-18 19:21] VITALS: BMI 31.4
[2022-05-18] MEDS: Atorvastatin Calcium 40 MG TABLET PO (19:31)
[2022-05-18 20:04] LABS: PTT Heparin Drip 77.7 SEC (53-77.9)
[2022-05-18] MEDS: Heparin Sodium,Porcine/1/2NS 25,000 UNIT/250 ML IV.SOLN 10 UNIT IVCONT (21:08)
[2022-05-18 23:06] VITALS: BP 100/58; PULSE 61; RESP 18; TEMP 37.3; O2SAT 97
[2022-05-19 03:04] VITALS: BP 105/58; PULSE 62; RESP 18; TEMP 36.7; O2SAT 95
[2022-05-19 03:30] LABS: PTT Heparin Drip 170.3 SEC (53-77.9)
[2022-05-19] MEDS: Levothyroxine Sodium 125 MCG TABLET PO (05:13)
[2022-05-19 05:16] LABS: PTT Heparin Drip 133.4 SEC (53-77.9)
[2022-05-19 05:34] VITALS: BMI 31.3
[2022-05-19 07:17] LABS: PTT Heparin Drip 91.8 SEC (53-77.9)
[2022-05-19 07:47] VITALS: BP 137/65; PULSE 60; RESP 20; TEMP 36.4; O2SAT 98
--- NOTE | 2022-05-19 08:30 | PC.NURSE ---
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 Pt agreeable to resuming heparin gtt 11:18. Heparin gtt restarted at 7.03 u/kg/hr Original Note: Pt greeted and explained heparin gtt will be resumed based on PTTHD result. Blackjack Supervisor called. Pt states get out of my room. I don't know what that is for. RN tried to educate pt on medication purpose and action. Pt refused propeller tester services, refused heparin gtt. notified.
--- NOTE | 2022-05-19 11:01 | P.DS_ITS ---
DS: Providers Provider Date of Service: 05/19/22 Date of admission: 05/17/22 21:34 Primary care physician: Unknown Physician Consults: 05/17/22 21:31 Consult to Cardiology Routine Consulting Provider: Santiago Diaz Reason for consultation: NSTEMI Has provider been notified: Yes DS: Diagnosis Discharge Diagnosis (1) Acute non-ST elevation myocardial infarction (NSTEMI): Status: Acute DS: Summary Hospital Course Hospital Course: He is 81-year-old male who says he is generally in good health has no prior cardiac issues came to the hospital with sudden-onset chest discomfort.? He was visiting a provider in [place], he lives in [place].? Yesterday was sitting in the car eating crackers.? He has not had appetite for some time.? He is undergoing a psychological stress related to his doing worse.? He was seeing a provided regarding this and then subsequently he started having discomfort in his upper sternal/neck area which she describes as tightness restarted radiating down.? He then walked into the office but his symptoms then gradually got worse and 911 was called.? EN route he was given aspirin.? By the time he came to the emergency room his discomfort at resolved.? No associated shortness of breath, nausea, vomiting, diaphoresis.? He has never symptoms like this in the past.? His 1st troponin was slightly elevated and 2nd troponin was in the 90s.? I was consulted.? His EKG showed nonspecific changes in the lateral leads subsequent EKG is normalized.? He is currently not having any chest pain syndrome.? His heart rate is in the upper 50s to 60s.? Blood pressure is stable.? Currently on low-dose metoprolol, aspirin, statins and IV heparin.? Cardiology consult was sought for further management plan.? His third troponins in the 590 range.. Hospial course: Patient was treated for NSTEMI with IV heparin, BB, Statin and Aspirin, Heparin drip and has been hemodynamically stable. Cardiology advises cardiac cath as next setp and therefore patient is being transfered to [facility] for this. Time Spent with Patient Time attestation: Total time spent providing and/or coordinating discharge services: Discharge coordination time: Greater than 30 minutes Quality: Safe Use of Opioids Does Pt have an Active Cancer Diagnosis on the Problem List?: No Quality: Stroke Does the patient have a stroke diagnosis?: No Physical Exam Vital Signs: Vital Signs: Last Vital Signs Temp 97.5 F 05/19/22 07:47 Pulse 60 05/19/22 07:47 Resp 20 05/19/22 07:47 BP 137/65 05/19/22 07:47 Pulse Ox 98 05/19/22 07:47 O2 Del Method 05/19/22 07:47 BMI result Body Mass Index 31.3 DS: Data Data Completed and Pending Labs on day of discharge: Laboratory Results - last 24 hr 05/18/22 05/18/22 05/18/22 11:50 13:41 15:26 aPTT Heparin Protocol > 150.0 H* > 150.0 H* > 150.0 H* 05/18/22 05/18/22 05/19/22 17:14 19:08 03:02 aPTT Heparin Protocol > 200.0 H* D 77.7 D 170.3 H* D 05/19/22 05/19/22 04:37 05:43 aPTT Heparin Protocol 133.4 H* D 91.8 H D Discharge Plan Discharge Anticipated Discharge Date/Time: 05/19/22 10:57 Patient Disposition: Xfer Acute Care Hospital Discharge Diagnosis: NSTEMI Referrals: Physician,Unknown J [Primary Care Provider] - 1 Week Discharge Medications: New metoprolol tartrate 25 mg tablet 12.5 mg PO BID Qty: 30 0RF heparin(porcine) in 0.45% NaCl 25,000 unit/250 mL Parenteral Solution 25,000 unit continuous IV infusion .Q0M Qty: 6000 0RF Rx Instructions: Follow institution's heparin protocol Continued atorvastatin 80 mg Tablet 40 mg PO BEDTIME donepezil 5 mg Tablet 5 mg PO DAILY aspirin 81 mg Tablet,Delayed Release (Dr/Ec) 81 mg PO DAILY pantoprazole [Protonix] 20 mg Tablet,Delayed Release (Dr/Ec) 20 mg PO DAILY tamsulosin 0.4 mg Capsule 0.4 mg PO DAILY levothyroxine 125 mcg Tablet 125 mcg PO DAILY sertraline [Zoloft] 50 mg Tablet 50 mg PO DAILY Discharge Orders: Discharge Order (Routine); Ordered 05/19/22 Ordered By: Franky Mlapah Activity on Discharge: As tolerated Stand Alone Forms: Patient Portal Discharge page Care Plan Goals: Management of CAD Health Concerns: NSTEMI Plan of Treatment: Transfer to [facility] for cardiac cath Assessment: as above Discharge Date/Time: 05/19/22 14:05
[2022-05-19] MEDS: Donepezil HCl 5 MG TABLET PO (11:02)
[2022-05-19] MEDS: Aspirin Enteric Coated 81 MG TABLET.DR PO (11:02)
[2022-05-19] MEDS: Metoprolol Tartrate 12.5 MG HALFTAB PO (11:02)
[2022-05-19] MEDS: Omeprazole 20 MG CAPSULE.DR PO (11:02)
[2022-05-19] MEDS: 0.9 % Sodium Chloride Flush 3 ML SYRINGE IVFLUSH (11:03)
[2022-05-19] MEDS: Sertraline HCL 50 MG TABLET PO (11:03)
[2022-05-19] MEDS: Tamsulosin HCL 0.4 MG CAPSULE PO (11:03)
--- NOTE | 2022-05-19 11:27 | P.PNCA_ITS ---
Subjective Subjective Date of Service: 05/19/22 Principal diagnosis: Acute coronary syndrome Interval history: No recurrent chest pain. Yesterday PTT was high and his heparin was held. This morning his PTT is in the therapeutic range but he was refusing IV heparin, did understand why needed. He is not having any recurrent cardiac symptoms. Plan for transfer to [facility]. Review of Systems Review of Systems Yes all other systems are reviewed and are negative Physical Exam Vital Signs: Last Vital Signs Temp 97.5 F 05/19/22 07:47 Pulse 60 05/19/22 07:47 Resp 20 05/19/22 07:47 BP 137/65 05/19/22 07:47 Pulse Ox 98 05/19/22 07:47 O2 Del Method 05/19/22 07:47 BMI result Body Mass Index 31.3 Const General: cooperative, comfortable, no acute distress, alert and awake Nutritional Appearance: overweight Orientation/consciousness: patient oriented x3 Limitations: no limitations Neck Neck: Yes trachea midline, Yes supple and Yes no JVD Chest Chest palpation & inspection: normal inspection of the chest Resp Effort & Inspection: normal respiratory effort Auscultation: clear to auscultation bilaterally Cardio Jugular venous distension: no JVD Palpation: normal PMI Rate: regular rate Rhythm: regular rhythm Heart sounds: S1 normal heart sound present, S2 normal heart sound present, no click, no gallops, no murmurs and no rubs GI Auscultation: normal bowel sounds Skin General skin exam: no rashes or lesions noted Neuro General: patient oriented x3 and no focal motor deficits Extrem General: Yes no clubbing, cyanosis or edema Objective Labs and Meds Result diagrams: 05/18/22 06:18 05/18/22 06:18 Lab results: Laboratory Results - last 24 hr 05/18/22 05/18/22 05/18/22 11:50 13:41 15:26 aPTT Heparin Protocol > 150.0 H* > 150.0 H* > 150.0 H* 05/18/22 05/18/22 05/19/22 17:14 19:08 03:02 aPTT Heparin Protocol > 200.0 H* D 77.7 D 170.3 H* D 05/19/22 05/19/22 04:37 05:43 aPTT Heparin Protocol 133.4 H* D 91.8 H D Progress Note: A&P Assessment and plan (1) Acute non-ST elevation myocardial infarction (NSTEMI): Status: Acute Assessment and Plan: Acute coronary syndrome with high risk features. Currently symptom free. Being planned to be transferred to [facility] for cardiac catheterization. Discussed with him about the need for the procedure including risk, benefits, alternatives. He understands agrees. Importance of continue IV heparin till tomorrow was discussed he understands. Continue aspirin, statins as well as metoprolol therapy. [facility] team has been made aware. Cardiac catheterization has been also range. Will follow with him as outpatient. Thank you for allowing me to partake in his care Time Spent With Patient Time: Total time spent is greater than 50% in coordination of care (as documented) at patient's floor/unit and/or counseling patient: Progress Note: Quality Stroke Does the patient have a stroke diagnosis?: No Procedures Date of Service Date of Service: 05/19/22
[2022-05-19 11:44] VITALS: BP 139/65; PULSE 60; RESP 20; TEMP 36.4; O2SAT 98
== END 2022-05-19 14:05 | disposition short-term general hospital (02) | DRG 282 ==
LOC: HO.ED 21:38 → HO.EDOVER 21:43 → HO.IMC 05-18 17:19
PROVIDERS: Nurse Practitioner Family; Admitting Provider Internal Medicine; Emergency Provider Emergency Medicine Emergency Medical Services; Visit Provider Internal Medicine
DX: I21.4 Non-ST elevation (NSTEMI) myocardial infarction (principal); N40.0 Benign prostatic hyperplasia without lower urinary tract symptoms; K21.9 Gastro-esophageal reflux disease without esophagitis; E78.5 Hyperlipidemia, unspecified; E03.9 Hypothyroidism, unspecified; F03.90 Unspecified dementia, unspecified severity, without behavioral disturbance, psychotic disturbance, mood disturbance, and anxiety; Z20.822 Contact with and (suspected) exposure to COVID-19; Z79.82 Long term (current) use of aspirin; Z79.890 Hormone replacement therapy; Z79.899 Other long term (current) drug therapy
CPT/HCPCS: 36415; 71045; 80048; 80076; 82947; 83690; 83735; 84484; 85025; 85027; 85610; 85730; 87635; 93005; 93306; 96365; 96375; 99285; Q9957